=== PATIENT | female | born 1960 | race Caucasian/White ===

== ENCOUNTER 2016-09-01 10:15 | Day surgery (SDC) | payer OTHER, MEDICARE ==
--- NOTE | ~2016-09-01 | EGD ---
EGD REPORT [facility] [address] [place] [address] NAME: MARILYNN OLMSTEAD : 60 STATUS : REG [facility]#: [id number] AGE: 56 ADM/REG DATE : 09/01/16 MR#: [id number] REPORT SERV DATE: 09/01/16 DICTATED BY: MICHAEL SHANKAR DATE: 09/01/16 REPORT STATUS : Draft TRANSCRIBED BY: [facility] DATE: 09/01/16 Endoscopy Center Patient Name: Marilnyn Olmstead Date of : 1960 Attending MD: MICHAEL SHANKAR MD Procedure Date No Time: 09/01/2016 Procedure: Colonoscopy Indications: Hematochezia, Last colonoscopy within the past 6 months Referring MD: BLANCA PALAFOX MD, ELIEL JOHNSTON III, MD Medicines: See the Anesthesia note for documentation of the administered medications Complications: No immediate complications. Procedure: Pre-Anesthesia Assessment: - ASA Grade Assessment: III - A patient with severe systemic disease. After I obtained informed consent, the scope was passed under direct vision. Throughout the procedure, the patient's blood pressure, pulse, and oxygen saturations were monitored continuously. The PCF [id number] was introduced through the sigmoid colostomy with the intention of advancing to the cecum. The scope was advanced to the surgical stoma before the procedure was aborted. Medications were given. The GIF H190 [id number] was introduced through the and advanced to. The GIF [id number] was introduced through the and advanced to. The colonoscopy was performed without difficulty. The patient tolerated the procedure well. The quality of the bowel preparation was adequate. Findings: Feel stricture within 2 cm, Inflammed mucosa. Ostomy stricture at 2 cm from skin. Ostomy sunken into skin. Impression: - Feel stricture within 2 cm Recommendation: - Patient has a contact number available for emergencies. The signs and symptoms of potential delayed complications were discussed with the patient. Return to normal activities tomorrow. Written discharge instructions were provided to the patient. - Continue present medications. - I have talked with Dr Johnston. His office to call you regarding colostomy surgery. - Repeat colon 02/2021 EGD REPORT [address] [place]. [address] NAME: MARILYNN OLMSTEAD : 60 STATUS : REG [facility] PAT#: [id number] AGE: 56 ADM/REG DATE : 09/01/16 MR#: [id number] REPORT SERV DATE: 09/01/16 DICTATED BY: MICHAEL SHANKAR DATE: 09/01/16 REPORT STATUS : Draft TRANSCRIBED BY: [employer] DATE: 09/01/16 Procedure Code(s): --- Professional --- 63783, 52, Colonoscopy through stoma; diagnostic, with or without collection of specimen(s) by brushing or washing (separate procedure) Diagnosis Code(s): --- Professional --- K92.1, Melena CPT copyright 2013 [employer]. All rights reserved. The codes documented in this report are preliminary and upon remote inpatient coder review may be revised to meet current compliance requirements. Michael Shankar MD MICHAEL SHANKAR MD 09/01/2016 12:12 PM This report has been signed electronically. Number of Addenda: 0 Note Initiated On: 09/01/2016 11:42 AM Scope Withdrawal Time 0 hours 0 minutes 0 seconds [address] [place] [address]
[~2016-09-01 10:15] MED LIST: *UNABLE1; ACET500CAP PO; ACID REDUCER PO; ACTEMRA80 MG/4 ML IV; ALIGN4 MG PO; APRES25 PO; APRES50; APRES50 PO; ARAVA20 PO; AUG875 PO; CIP2 PO; CIP5 PO; COREG3 PO; COREG6 PO; COZ50 PO; FLAG500TAB PO; FOLIC PO; FORTAMET500 MG PO; HYDROCODONE; LANTUS SC; LANTUSCART SC; LEVAQUIN5T PO; LEVAQUIN750 MG PO; MAGOX4; MIRALAXPKT PO; MTX2.5 PO; NOVOLOG SC; P1 PO; PCET PO; PREDNISONE2.5 MG PO; PREV30 PO; PROAIR HFA INH; PROVHFA INH; REMICADE IV; RENVELA800 MG; RENVELA800 MG PO; SENSIPAR30 M1; SENSIPAR30 M1 PO; STERAPRED DS10 MG; SUCR PO; SYMBICORT 160/41 INH INH; SYSTANE OPH; TOPXL25 PO; TOPXL50 PO; VANCO1P; VIB100 PO; VICODINTAB PO; VITAMIN D31000 UNIT PO; ZANTAC 150 PO; ZANTAC150 MG PO; ZOCOR20 PO; ZOFRAN4 PO
[2016-09-01 11:21] LABS: CHLORIDE, SERUM 103 MMOL/L (96-112); CO2 (CARBON DIOXIDE) 26 MMOL/L (24-34); SODIUM, SERUM 139 MMOL/L (135-148)
[2016-09-01 11:23] LABS: BUN (BLOOD UREA NITROGEN) 37 MG/DL (6-23); CALCIUM, SERUM 10.4 MG/DL (8.5-10.4); CREATININE 5.22 MG/DL (0.55-1.02); GFR AFRICAN AMERICAN 10 ML/MIN (>=60); GFR NON AFRICAN AMERICAN 9 ML/MIN (>=60); GLUCOSE, SERUM 115 MG/DL (60-99); POTASSIUM, SERUM 5.2 MMOL/L (3.5-5.3)
[2016-09-19] MEDS ORDERED: SUCR PO (10:19)
[2016-09-19] MEDS ORDERED: SODBICAR10 PO (10:20)
== END 2016-09-01 23:59 | disposition home or self-care (01) ==
LOC: DMU 10:15
PROVIDERS: Anesthesiology; Internal Medicine Gastroenterology
PROC: 0DJD8ZZ Inspection of Lower Intestinal Tract, Via Natural or Artificial Opening Endoscopic (ICD-10-PCS; principal; 2016-09-01 12:00)
DX: K92.1 Melena (principal); J44.9 Chronic obstructive pulmonary disease, unspecified; E78.5 Hyperlipidemia, unspecified; E11.40 Type 2 diabetes mellitus with diabetic neuropathy, unspecified; I10 Essential (primary) hypertension; G47.30 Sleep apnea, unspecified; J45.909 Unspecified asthma, uncomplicated; M06.9 Rheumatoid arthritis, unspecified; K21.9 Gastro-esophageal reflux disease without esophagitis; K44.9 Diaphragmatic hernia without obstruction or gangrene; Z88.8 Allergy status to other drugs, medicaments and biological substances; Z79.899 Other long term (current) drug therapy; Z79.4 Long term (current) use of insulin; Z90.89 Acquired absence of other organs; Z99.89 Dependence on other enabling machines and devices; Z98.890 Other specified postprocedural states; Z96.643 Presence of artificial hip joint, bilateral
CPT/HCPCS: 80048; A9270-GY

== ENCOUNTER 2016-09-22 05:52 | Inpatient (IN) | payer OTHER, MEDICARE ==
--- NOTE | ~2016-09-22 | OP ---
Record Of Operation [facility] [address] [place]. [address] NAME: ANIBAL BA : 60 STATUS : ADM IN [facility]#: [id number] AGE: 56 ADM/REG DATE : 09/22/16 MR#: [id number] REPORT SERV DATE: 09/23/16 DICTATED BY: ELIEL JOHNSTON III DATE: 09/23/16 REPORT STATUS : Draft TRANSCRIBED BY: [employer] DATE: 09/23/16 DATE OF PROCEDURE: 09/22/2016 PREOPERATIVE DIAGNOSIS: History of previous severe sigmoid diverticulitis with previous history of sigmoid colectomy and colostomy with anastomotic leak requiring reoperation with replacement of colostomy, with need for colostomy closure, associated with severe steroid- dependent arthritis, chronic kidney disease, dialysis dependent, diabetes mellitus, and obesity. POSTOPERATIVE DIAGNOSIS: History of previous severe sigmoid diverticulitis with previous history of sigmoid colectomy and colostomy with anastomotic leak requiring reoperation with replacement of colostomy, with need for colostomy closure, associated with severe steroid- dependent arthritis, chronic kidney disease, dialysis dependent, diabetes mellitus, and obesity. PROCEDURE: Laparotomy with resection and closure of colostomy stoma with primary colorectal anastomosis and sigmoidoscopy. SURGEON: Eliel Johnston M.D. ANESTHESIA: General with intubation. COMPLICATIONS: None. ESTIMATED BLOOD LOSS: 50 mL. SPECIMENS: Distal left colon consisting of abdominal wall stoma. DRAINS: Jose-Barnes in abdominal cavity and Converse in subcutaneous tissue. LAP AND SPONGE COUNT: Correct x3. BRIEF HISTORY: This 56-year-old female who is status post sigmoid colectomy which was performed several months ago for severe chronic diverticular disease. The patient developed a postoperative anastomotic leak, requiring reoperation with colostomy and Alverto's pouch. It was now felt that closure of this colostomy is indicated. This procedure, the risks, benefits, and alternatives, including not limited to the risk for bleeding, infection, enterotomy, injury to any abdominal structure, postop small bowel obstruction, ileus, incisional hernia, dehiscence, anastomotic leak, requiring reoperation with replacement of the colostomy, ureteral injury and unforeseen complications including deep venous thrombosis, pulmonary embolus, myocardial infarction, stroke, pneumonia, and , were fully and completely explained to the patient and her family at length on multiple occasions prior to surgery. The fact that this was a major operation with risk for major morbidity and mortality has been explained. The expected length of recovery was explained. The fact that she is at increased risk for complications and anastomotic leak because of her previous surgery, because of her previous anastomotic leak, because of her steroid dependency, renal Record Of Operation [facility] [address] [place]. [address] NAME: ANIBAL BA : 60 STATUS : ADM IN PAT#: [id number] AGE: 56 ADM/REG DATE : 09/22/16 MR#: [id number] REPORT SERV DATE: 09/23/16 DICTATED BY: ELIEL JOHNSTON III DATE: 09/23/16 REPORT STATUS : Draft TRANSCRIBED BY: [employer] DATE: 09/23/16 failure, and obesity. The patient's questions were answered. She fully understood the risks and agreed to surgery as planned. DESCRIPTION OF PROCEDURE: After being properly identified and after discussing risks of surgery with the patient and family again in the preoperative area and after an appropriate bowel preparation at home, the patient was taken to the operating room and placed in the supine position on the operating room table. General anesthesia was administered. She was intubated without difficulty. A Nicholson catheter was inserted. Her legs were placed in stirrups. They were carefully and appropriately padded and protected. The abdomen and perineum were prepped and draped sterilely in the usual fashion. After an appropriate "timeout" per JCAHO standards, a midline incision was made over the previous incision from the navel continuing to the pubis. The incision was continued through the subcutaneous tissue. Hemostasis was controlled with electrocautery. The incision was continued carefully through the fascia. There were dense adhesions between several loops of small bowel and the omentum and the underside of the abdominal wall. These adhesions were carefully divided. We dissected down into the pelvis. The omentum was densely adherent into the pelvis. Using sharp dissection, the adhesions were divided. The omentum was mobilized. Using sharp dissection, we identified the rectal stump. It was carefully mobilized and freed. At this time, a circular incision was made around the colostomy stoma in the left lower quadrant. The stoma was resected from the abdominal wall and reduced back into the abdominal cavity. The distal end of the left colon which was within the abdominal wall, the stoma, was divided with the JEREMY stapler, removing about 2-3 cm of the distal left colon. We then performed end-to-end anastomosis between the divided left colon and the proximal rectum. This was performed using the EEA stapler. 2-0 Prolene pursestring was placed around the divided end of the left colon. The staple end of the colon was excised. Sizers were placed into the lumen of the colon. It was determined that a #29 EEA stapler was the appropriate size. The anvil was then placed into the lumen of the left colon as the pursestring was secured. At this time, the EEA stapler was carefully placed into the rectum after carefully dilating the rectum with dilators. The EEA stapler was passed up to the rectal stump. The pin was opened and passed through the rectal stump. The pin was connected to the anvil in the left colon. The stapling device was then carefully closed and fired. The stapling device was removed. We obtained two good complete "doughnuts" indicating a good anastomosis. At this time, the sigmoidoscope was passed into the rectum. Air was passed through the sigmoidoscope and through the anastomosis with saline in the pelvis. The air was noted to pass easily through the anastomosis with no evidence for leakage or extravasation indicating watertight anastomosis. The anastomosis was patent to palpation, it was not twisted or kinked in any way. It was not under any tension. The anterior aspect of the anastomosis was reinforced with interrupted 3-0 silk sutures. Record Of Operation [facility] [address] [facility] [place]. [address] NAME: ANIBAL BA : 60 STATUS : ADM IN [facility]#: [id number] AGE: 56 ADM/REG DATE : 09/22/16 MR#: [id number] REPORT SERV DATE: 09/23/16 DICTATED BY: ELIEL JOHNSTON III DATE: 09/23/16 REPORT STATUS : Draft TRANSCRIBED BY: MODL DATE: 09/23/16 Again, the anastomosis was patent to palpation. The pelvis was irrigated copiously with saline. Hemostasis was assured. A Jose-Barnes drain was brought through a separate stab wound and placed in the pelvis. The fascia of the stomal defect was closed with a running looped #1 Prolene suture. The hemostasis was assured. The fascia of the midline incision was closed with a running looped #1 PDS suture. The skin was closed with skin mat over a Brittanie drain which was brought out through the inferior aspect of the incision. A Brittanie drain was also placed in the subcutaneous tissue where the stoma had been located. Dressings were applied. Anesthesia was reversed, and the patient was taken to the recovery room in stable condition. She tolerated the procedure well. Her family was informed results of surgery. The patient will remain in the hospital for postoperative care. This procedure was extremely difficult secondary to marked adhesions from the patient's previous peritonitis which extended the length of the procedure by 75% and for this reason, modifier 22 was added to the procedure code. RHJ/MODL Eliel Johnston III, M.D. / [id number] CC: Wendie Marquez III, M.D.
--- NOTE | ~2016-09-22 | DS ---
Discharge Summary [facility] [address] [facility] [place]. [address] NAME: ANIBAL AB : 60 STATUS : DIS IN PAT#: [id number] AGE: 56 ADM/REG DATE : 09/22/16 MR#: [id number] REPORT SERV DATE: 10/06/16 DICTATED BY: ELIEL JOHNSTON III DATE: 10/05/16 REPORT STATUS : Draft TRANSCRIBED BY: [employer] DATE: 10/05/16 Data Collection from hospitalization DISCHARGE DIAGNOSES: 1. History of previous severe sigmoid diverticulitis with previous history of sigmoid colectomy and colostomy with anastomotic leak, requiring reoperation with replacement of colostomy with need for colostomy closure. 2. Severe steroid-dependent arthritis. 3. Chronic kidney disease - dialysis dependent. 4. Diabetes mellitus. 5. Obesity. 6. Hypertension. 7. Hyperlipidemia. 8. Gastroesophageal reflux disease. CONSULTATIONS: Cam Dawson M.D. PROCEDURES PERFORMED: Laparotomy with resection and closure of colostomy stoma with primary colorectal anastomosis and sigmoidoscopy on 09/22/2016. PATHOLOGY: Colostomy stoma takedown - intact cutaneous - colonic anastomosis with mucosal/epithelial erosion and inflamed granulation tissue. Extensive dermal and submucosal fibrosis associated with florid chronic inflammation including suture granulomas and fat necrosis, no malignant neoplasm identified. Colon anastomotic rings resection portion - portions of benign colonic mucosa with areas of submucosal hemorrhage, no malignant neoplasm identified. MEDICATIONS: ProAir two puffs via inhaler as needed, folic acid 1 mg at bedtime, Lantus 20 units subcutaneously at bedtime, Arava 20 mg at bedtime, Toprol-XL 25 mg every day at bedtime, Zofran 4 mg daily as needed, Percocet 7.5/325 one tablet every six to eight hours as needed, Deltasone 1 mg every day at bedtime, Zantac 150 mg at bedtime and 150 mg daily as needed, sodium bicarb 650 mg twice a day, and Carafate 1 g before meals and at bedtime as needed. CONDITION AT DISCHARGE: Stable. DISPOSITION: The patient was discharged home on an 1800-calorie, low-cholesterol, renal- diabetic diet with no concentrated carbohydrates and activities as instructed. She would follow up with me on 10/11/2016. HOSPITAL COURSE: This is a 56-year-old female who has had multiple medical problems including end-stage renal disease and is dialysis dependent. She has diabetes, hypertension, and severe rheumatoid arthritis. She has a history of severe recurrent sigmoid diverticulitis. She had multiple episodes of diverticulitis last year. She underwent an elective sigmoid colectomy earlier this year. Her postoperative course had been complicated by microscopic anastomotic leak, requiring reoperation with colostomy. She has now developed evidence for stenosis of her stoma with recurrent bleeding. She presented at this time to undergo resection and closure of her colostomy stoma. She was admitted to Discharge Summary [address] [facility] [place]. [address] NAME: ANIBAL BA : 60 STATUS : DIS IN PAT#: [id number] AGE: 56 ADM/REG DATE : 09/22/16 MR#: [id number] REPORT SERV DATE: 10/06/16 DICTATED BY: ELIEL JOHNSTON III DATE: 10/05/16 REPORT STATUS : Draft TRANSCRIBED BY: COLUMBA DATE: 10/05/16 the hospital for further evaluation and treatment. Upon admission, she was taken to the operating room where she underwent the above-mentioned procedure. She tolerated this well, and there were no complications. She was in consultation by Dr. Cam Dawson. The patient undergoes outpatient hemodialysis on Mondays, Wednesdays, and Fridays for end-stage renal disease. Potassium was going to be discontinued from her IV fluids/KVO, dialysis would be performed the following day, supportive care would be provided. On postop day #1, she had no new complaints. The patient requested that she be able to keep the Nicholson catheter for now as she had frequent urination, dialysis therapy was performed. On 09/24/2016, she had no new complaints except for her chronic back pain. Clear liquids were started. She continued to progress and began to feel better. She tolerate clear liquids. She was passing gas per rectum. Her diet was advanced. Discharge planning was performed. She was evaluated by Physical Therapy. On 09/26/2016, she felt well. She said she was hungry and wanted more food. She was passing gas. We advanced her diet. The [employer] REPA[employer]ER was discontinued. Discharge instructions were given. She had good urine output. Due to her improved and stable condition, she was discharged home with the above-stated instructions. Information collected by: Padmini Cobb I submit the above information as my discharge summary. TG/MODL Eliel Johnston III, M.D. / [id number] CC: Wendie Marquez III, M.D. Nathan Chamberlain, M.D.
--- NOTE | ~2016-09-22 | PREOPHP ---
PreOp History and Physical [place] [id number] [facility] [place]. [address] NAME: ANIBAL BA : 60 STATUS : ADM IN [facility]#: [id number] AGE: 56 ADM/REG DATE : 09/22/16 MR#: [id number] REPORT SERV DATE: 09/23/16 DICTATED BY: ELIEL JOHNSTON III DATE: 09/07/16 REPORT STATUS : Draft TRANSCRIBED BY: COLUMBA DATE: 09/07/16 HISTORY OF PRESENT ILLNESS: This 56-year-old female comes to the operating room for laparotomy with resection and closure of a previous colostomy. The patient has history of severe recurrent sigmoid diverticulitis. She had multiple episodes of diverticulitis last year. She underwent an elective sigmoid colectomy earlier this year. Her postoperative course was complicated by microscopic anastomotic leak requiring reoperation with colostomy. She has now developed evidence for stenosis of her stoma with recurrent bleeding. She comes now for resection and closure of her colostomy stoma. The patient has multiple medical problems including end-stage renal disease, which is dialysis dependent, diabetes, hypertension, and severe rheumatoid arthritis. This has been explained to her with all of these comorbid risk factors. We will increase her risk for complications including another anastomotic leak has been explained. It has been explained to her the temporary diverting ileostomy may be required at the time of surgery depending on the findings at surgery and depending on her anastomosis. PAST MEDICAL HISTORY: 1. Recurrent episodes of sigmoid diverticulitis. The patient had severe episode of diverticulitis in September 2015. This required hospitalization. She had at least three episodes prior to that time. 2. History of chronic kidney disease, dependent on hemodialysis. 3. Hypertension. 4. Insulin-dependent diabetes mellitus. 5. Obesity. 6. Rheumatoid arthritis, steroid dependent. 7. Hyperlipidemia. 8. Gastroesophageal reflux disease. 9. History of deep venous thrombosis of the lower extremities. MEDICATIONS: Arava; carvedilol; Zocor; Zofran; prednisone; folic acid; Carafate; Zantac; ProAir; insulin; hydralazine; Cozaar; Renvela; and Sensipar. SOCIAL HISTORY: The patient is . She lives locally. She is not employed. She has no history of tobacco or alcohol use. ALLERGIES: VANTIN AND LODINE. FAMILY HISTORY: Positive for multiple myeloma. REVIEW OF SYSTEMS: The patient complained of some recurrent episodes of bright red blood per her stoma which has been evaluated with colonoscopy and found to be related to stenosis and ulceration of the stoma itself. The patient's 14-point review of systems is otherwise unremarkable. PreOp History and Physical [address] [place]. [address] NAME: ANIBAL BA : 60 STATUS : ADM IN [facility]#: [id number] AGE: 56 ADM/REG DATE : 09/22/16 MR#: [id number] REPORT SERV DATE: 09/23/16 DICTATED BY: ELIEL JOHNSTON III DATE: 09/07/16 REPORT STATUS : Draft TRANSCRIBED BY: COLUMBA DATE: 09/07/16 PAST SURGICAL HISTORY: Includes laparoscopic peritoneal dialysis catheter placement, sigmoid colectomy, reoperation with a diverting colostomy, hip replacement x2, cholecystectomy, and appendectomy. The patient's sigmoid colectomy was performed on 05/26/2016. PHYSICAL EXAMINATION: GENERAL: This is a pleasant female, in no acute distress. She is obese. She is alert and oriented x3. VITAL SIGNS: Blood pressure 145/87, pulse 93, and temperature 98.5. HEENT: Unremarkable. NEURO: Cranial nerves 2 through 12 are normal. LUNGS: Clear. CARDIAC: Normal. ABDOMEN: Soft, nontender. The patient has a colostomy in the left lower quadrant. The stoma is retracted and the stomal opening is very narrowed and stenosed and ulcerated. EXTREMITIES: Normal. ASSESSMENT: 1. A 56-year-old female with previous history of sigmoid colectomy for diverticular disease, with colostomy, with stenosis of bleeding from the colostomy stoma, with need for resection and closure of the colostomy. 2. Obesity. 3. End-stage renal disease, dialysis dependent. 4. Rheumatoid arthritis, steroid dependent. 5. Hypertension. 6. Insulin-dependent denies mellitus. 7. Obesity. 8. Hyperlipidemia. 9. History of deep venous thrombosis. 10.Gastroesophageal reflux disease. PLAN: The patient comes to the operating room now for resection and closure of her colostomy. The possible need for temporary diverting ileostomy has been explained. The procedure risks, benefits, and alternatives, including not limited to the risk for bleeding, infection, enterotomy, injury to the abdominal structure, postop small bowel obstruction, ileus, incisional hernia, dehiscence, anastomotic leak, requiring reoperation with replacement of colostomy, ureteral injury, and unforeseen complications including deep venous thrombosis, pulmonary embolus, myocardial infarction, stroke, pneumonia, and , have been fully and completely explained to the patient and family at length on several occasions prior to surgery. The fact that this is a major operation with risk for major morbidity and mortality has been explained. The expected length of recovery has been explained. The fact that she is at increased risk for complications due to her obesity and multiple medical problems including diabetes and steroid dependency and renal failure has been explained. The patient's questions have been answered. She clearly understands the risks and agrees to surgery as planned. PreOp History and Physical [address] [place]. [address] NAME: ANIBAL BA : 60 STATUS : ADM IN [facility]#: [id number] AGE: 56 ADM/REG DATE : 09/22/16 MR#: [id number] REPORT SERV DATE: 09/23/16 DICTATED BY: ELIEL JOHNSTON III DATE: 09/07/16 REPORT STATUS : Draft TRANSCRIBED BY: COLUMBA DATE: 09/07/16 GENTRY/COLUMBA Eliel Johnston III, M.D. / [id number]
[~2016-09-22 05:52] MED LIST changes: +SODBICAR10 PO
[2016-09-22 06:44] LABS: BASOPHILS 0.7 %; BASOPHILS ABSOLUTE 0.04 10/3/uL (0.0-0.16); EOSINOPHILS ABSOLUTE 0.22 10/3/uL (0.0-0.53); IMMATURE GRANULOCYTES 0.2 %; IMMATURE GRANULOCYTES ABSOLUTE 0.01 10/3/uL (0.0-0.11); LYMPHOCYTES 31.8 %; LYMPHOCYTES ABSOLUTE 1.75 10/3/uL (0.67-4.30); MEAN CORPUS HGB CONC 32.2 g/dL (32.0-36.0); MEAN CORPUSCULAR HEMOGLOB 27.2 pg (26.0-34.0); MEAN PLATELET VOLUME 8.9 fL (9.2-13.0); MONOCYTES 10.2 %; MONOCYTES ABSOLUTE 0.56 10/3/uL (0.21-1.20); NEUTROPHILS 53.1 %; NEUTROPHILS ABSOLUTE 2.92 10/3/uL (2.02-8.40); RBC DISTRIBUTION WIDTH 17.4 % (12.0-16.0); WHITE BLOOD CELLS 5.5 10/3/uL (4.5-10.5)
[2016-09-22 06:46] LABS: HEMATOCRIT 40.7 % (36.0-48.0); HEMOGLOBIN 13.1 g/dL (12.0-16.0); MANUAL DIFF NO %; MEAN CORPUSCULAR VOLUME 84.4 fL (80-100); PLATELET COUNT 191 10/3/uL (150-400); RED CELL COUNT 4.82 10/6/uL (4.0-5.6)
[2016-09-22 06:49] LABS: INTERNATIONAL NORMAL RATI 1.1 UNITS (-); PARTIAL THROMBO TIME 25.3 SEC (22.5-37.2); PROTIME (NOT ORD) 13.6 SEC (12.0-14.5)
[2016-09-22 07:00] LABS: A/G RATIO 0.7 (0.7-1.9); ALBUMIN 3.4 G/DL (3.5-5.0); ALKALINE PHOSPHATASE 102 U/L (45-117); BUN (BLOOD UREA NITROGEN) 25 MG/DL (6-23); CHLORIDE, SERUM 101 MMOL/L (96-112); CO2 (CARBON DIOXIDE) 25 MMOL/L (24-34); CREATININE 5.48 MG/DL (0.55-1.02); GFR AFRICAN AMERICAN 9 ML/MIN (>=60); GFR NON AFRICAN AMERICAN 8 ML/MIN (>=60); GLOBULIN 4.6 G/DL (2.5-4.1); GLUCOSE, SERUM 108 MG/DL (60-99); POTASSIUM, SERUM 4.5 MMOL/L (3.5-5.3); SGOT(AST) 23 U/L (5-40); SGPT(ALT) 31 U/L (5-65); SODIUM, SERUM 139 MMOL/L (135-148); TOTAL BILIRUBIN 0.5 MG/DL (0-1.2)
[2016-09-22 21:15] LABS: BUN (BLOOD UREA NITROGEN) 32 MG/DL (6-23); CALCIUM, SERUM 9.3 MG/DL (8.5-10.4); CHLORIDE, SERUM 101 MMOL/L (96-112); CO2 (CARBON DIOXIDE) 24 MMOL/L (24-34); CREATININE 6.13 MG/DL (0.55-1.02); GFR AFRICAN AMERICAN 8 ML/MIN (>=60); GFR NON AFRICAN AMERICAN 7 ML/MIN (>=60); GLUCOSE, SERUM 174 MG/DL (60-99); POTASSIUM, SERUM 5.3 MMOL/L (3.5-5.3); SODIUM, SERUM 137 MMOL/L (135-148)
[2016-09-23 07:09] LABS: BASOPHILS 0.6 %; BASOPHILS ABSOLUTE 0.04 10/3/uL (0.0-0.16); EOSINOPHILS ABSOLUTE 0.07 10/3/uL (0.0-0.53); HEMOGLOBIN 10.7 g/dL (12.0-16.0); IMMATURE GRANULOCYTES 0.1 %; IMMATURE GRANULOCYTES ABSOLUTE 0.01 10/3/uL (0.0-0.11); LYMPHOCYTES 15.1 %; LYMPHOCYTES ABSOLUTE 1.08 10/3/uL (0.67-4.30); MEAN CORPUS HGB CONC 31.7 g/dL (32.0-36.0); MEAN CORPUSCULAR VOLUME 85.4 fL (80-100); MEAN PLATELET VOLUME 9.1 fL (9.2-13.0); MONOCYTES 10.5 %; MONOCYTES ABSOLUTE 0.75 10/3/uL (0.21-1.20); NEUTROPHILS 72.7 %; NEUTROPHILS ABSOLUTE 5.21 10/3/uL (2.02-8.40); PLATELET COUNT 189 10/3/uL (150-400); RBC DISTRIBUTION WIDTH 17.8 % (12.0-16.0); RED CELL COUNT 3.96 10/6/uL (4.0-5.6); WHITE BLOOD CELLS 7.2 10/3/uL (4.5-10.5)
[2016-09-23 07:11] LABS: HEMATOCRIT 33.8 % (36.0-48.0); MANUAL DIFF NO %
[2016-09-23 07:23] LABS: ALBUMIN 2.7 G/DL (3.5-5.0); BUN (BLOOD UREA NITROGEN) 38 MG/DL (6-23); CHLORIDE, SERUM 99 MMOL/L (96-112); CO2 (CARBON DIOXIDE) 22 MMOL/L (24-34); CREATININE 6.69 MG/DL (0.55-1.02); GFR AFRICAN AMERICAN 7 ML/MIN (>=60); GFR NON AFRICAN AMERICAN 6 ML/MIN (>=60); GLUCOSE, SERUM 98 MG/DL (60-99); PHOSPHORUS, SERUM 8.5 MG/DL (2.5-4.5); POTASSIUM, SERUM 4.8 MMOL/L (3.5-5.3); SODIUM, SERUM 134 MMOL/L (135-148)
[2016-09-24 06:13] LABS: BASOPHILS 0.3 %; BASOPHILS ABSOLUTE 0.02 10/3/uL (0.0-0.16); EOSINOPHILS 3.8 %; EOSINOPHILS ABSOLUTE 0.22 10/3/uL (0.0-0.53); HEMATOCRIT 33.7 % (36.0-48.0); HEMOGLOBIN 10.5 g/dL (12.0-16.0); IMMATURE GRANULOCYTES 0.2 %; IMMATURE GRANULOCYTES ABSOLUTE 0.01 10/3/uL (0.0-0.11); LYMPHOCYTES 21.5 %; LYMPHOCYTES ABSOLUTE 1.23 10/3/uL (0.67-4.30); MEAN CORPUS HGB CONC 31.2 g/dL (32.0-36.0); MEAN CORPUSCULAR HEMOGLOB 26.8 pg (26.0-34.0); MEAN PLATELET VOLUME 9.1 fL (9.2-13.0); MONOCYTES 12.6 %; MONOCYTES ABSOLUTE 0.72 10/3/uL (0.21-1.20); NEUTROPHILS 61.6 %; NEUTROPHILS ABSOLUTE 3.53 10/3/uL (2.02-8.40); PLATELET COUNT 166 10/3/uL (150-400); RBC DISTRIBUTION WIDTH 18.1 % (12.0-16.0); RED CELL COUNT 3.92 10/6/uL (4.0-5.6); WHITE BLOOD CELLS 5.7 10/3/uL (4.5-10.5)
[2016-09-24 06:14] LABS: MANUAL DIFF NO %
[2016-09-24 06:21] LABS: ALBUMIN 2.5 G/DL (3.5-5.0); BUN (BLOOD UREA NITROGEN) 18 MG/DL (6-23); CALCIUM, SERUM 8.7 MG/DL (8.5-10.4); CHLORIDE, SERUM 103 MMOL/L (96-112); CO2 (CARBON DIOXIDE) 26 MMOL/L (24-34); GFR AFRICAN AMERICAN 12 ML/MIN (>=60); GFR NON AFRICAN AMERICAN 10 ML/MIN (>=60); GLUCOSE, SERUM 93 MG/DL (60-99); PHOSPHORUS, SERUM 3.4 MG/DL (2.5-4.5); POTASSIUM, SERUM 4.4 MMOL/L (3.5-5.3); SODIUM, SERUM 137 MMOL/L (135-148)
[2016-09-25 04:39] LABS: BASOPHILS 0.2 %; BASOPHILS ABSOLUTE 0.01 10/3/uL (0.0-0.16); EOSINOPHILS 3.7 %; EOSINOPHILS ABSOLUTE 0.16 10/3/uL (0.0-0.53); HEMATOCRIT 34.2 % (36.0-48.0); HEMOGLOBIN 10.6 g/dL (12.0-16.0); IMMATURE GRANULOCYTES 0.5 %; IMMATURE GRANULOCYTES ABSOLUTE 0.02 10/3/uL (0.0-0.11); LYMPHOCYTES 26.9 %; LYMPHOCYTES ABSOLUTE 1.16 10/3/uL (0.67-4.30); MANUAL DIFF NO %; MEAN CORPUSCULAR HEMOGLOB 26.6 pg (26.0-34.0); MEAN CORPUSCULAR VOLUME 85.9 fL (80-100); MEAN PLATELET VOLUME 8.8 fL (9.2-13.0); MONOCYTES 10.2 %; MONOCYTES ABSOLUTE 0.44 10/3/uL (0.21-1.20); NEUTROPHILS 58.5 %; NEUTROPHILS ABSOLUTE 2.53 10/3/uL (2.02-8.40); PLATELET COUNT 155 10/3/uL (150-400); RED CELL COUNT 3.98 10/6/uL (4.0-5.6); WHITE BLOOD CELLS 4.3 10/3/uL (4.5-10.5)
[2016-09-25 04:56] LABS: CHLORIDE, SERUM 104 MMOL/L (96-112); CO2 (CARBON DIOXIDE) 27 MMOL/L (24-34); GFR AFRICAN AMERICAN 9 ML/MIN (>=60); GFR NON AFRICAN AMERICAN 7 ML/MIN (>=60); GLUCOSE, SERUM 96 MG/DL (60-99); POTASSIUM, SERUM 4.6 MMOL/L (3.5-5.3); SODIUM, SERUM 138 MMOL/L (135-148)
[2016-09-25 04:57] LABS: BUN (BLOOD UREA NITROGEN) 26 MG/DL (6-23); CREATININE 5.82 MG/DL (0.55-1.02)
[2016-09-26 06:54] LABS: BASOPHILS 0.5 %; BASOPHILS ABSOLUTE 0.02 10/3/uL (0.0-0.16); EOSINOPHILS 4.6 %; EOSINOPHILS ABSOLUTE 0.18 10/3/uL (0.0-0.53); HEMATOCRIT 34.9 % (36.0-48.0); HEMOGLOBIN 10.9 g/dL (12.0-16.0); IMMATURE GRANULOCYTES 0.5 %; IMMATURE GRANULOCYTES ABSOLUTE 0.02 10/3/uL (0.0-0.11); LYMPHOCYTES 26.6 %; LYMPHOCYTES ABSOLUTE 1.04 10/3/uL (0.67-4.30); MANUAL DIFF NO %; MEAN CORPUS HGB CONC 31.2 g/dL (32.0-36.0); MEAN CORPUSCULAR VOLUME 86.4 fL (80-100); MEAN PLATELET VOLUME 8.9 fL (9.2-13.0); MONOCYTES ABSOLUTE 0.43 10/3/uL (0.21-1.20); NEUTROPHILS 56.8 %; NEUTROPHILS ABSOLUTE 2.22 10/3/uL (2.02-8.40); PLATELET COUNT 187 10/3/uL (150-400); RBC DISTRIBUTION WIDTH 17.5 % (12.0-16.0); RED CELL COUNT 4.04 10/6/uL (4.0-5.6); WHITE BLOOD CELLS 3.9 10/3/uL (4.5-10.5)
[2016-09-26 07:06] LABS: BUN (BLOOD UREA NITROGEN) 29 MG/DL (6-23); CALCIUM, SERUM 9.2 MG/DL (8.5-10.4); CHLORIDE, SERUM 105 MMOL/L (96-112); CO2 (CARBON DIOXIDE) 26 MMOL/L (24-34); CREATININE 6.55 MG/DL (0.55-1.02); GFR AFRICAN AMERICAN 8 ML/MIN (>=60); GFR NON AFRICAN AMERICAN 6 ML/MIN (>=60); GLUCOSE, SERUM 95 MG/DL (60-99); POTASSIUM, SERUM 4.5 MMOL/L (3.5-5.3); SODIUM, SERUM 137 MMOL/L (135-148)
[2016-09-26] MEDS ORDERED: PERCOCET 7.5/321 TAB PO (15:33)
== END 2016-09-26 16:24 | disposition home or self-care (01) | DRG 329 ==
LOC: SDC/OF 05:52 → PACU 10:15 → 5SO 12:31
PROVIDERS: Internal Medicine Nephrology; Surgery
PROC: 0DBE0ZZ Excision of Large Intestine, Open Approach (ICD-10-PCS; principal; 2016-09-22 07:45)
PROC: 0DJD8ZZ Inspection of Lower Intestinal Tract, Via Natural or Artificial Opening Endoscopic (ICD-10-PCS; 2016-09-22 07:45)
PROC: 5A1D60Z (ICD-10-PCS; 2016-09-23)
DX: K94.01 Colostomy hemorrhage (principal); N18.6 End stage renal disease; E11.22 Type 2 diabetes mellitus with diabetic chronic kidney disease; I12.0 Hypertensive chronic kidney disease with stage 5 chronic kidney disease or end stage renal disease; K94.09 Other complications of colostomy; E66.9 Obesity, unspecified; Z99.2 Dependence on renal dialysis; M06.9 Rheumatoid arthritis, unspecified; Z79.52 Long term (current) use of systemic steroids; Z79.899 Other long term (current) drug therapy; Z79.4 Long term (current) use of insulin; Z86.718 Personal history of other venous thrombosis and embolism; K21.9 Gastro-esophageal reflux disease without esophagitis; K58.9 Irritable bowel syndrome, unspecified; Z86.73 Personal history of transient ischemic attack (TIA), and cerebral infarction without residual deficits; G47.33 Obstructive sleep apnea (adult) (pediatric)
CPT/HCPCS: 36415; 72040; 72072; 72100; 73502-RT; 73630-RT; 80048; 80053; 80069; 82962; 83735; 85025; 85610; 85730; 86850; 86900; 86901; 88304; 93005; A9270-GY; C9113; G0257; J0690; J1170; J2250; J2270; J2370; J2405; J2710; J2795; J2930; J3010; J3475

== ENCOUNTER 2016-10-07 15:10 | Observation (INO) | payer OTHER, MEDICARE ==
--- NOTE | ~2016-10-07 | HP ---
History And Physical [address] [address] NAME: ANIBAL BA : 60 STATUS : DIS Jodie PAT#: [id number] AGE: 56 ADM/REG DATE : 10/07/16 MR#: [id number] REPORT SERV DATE: 10/08/16 DICTATED BY: ELIEL JOHNSTON III DATE: 10/08/16 REPORT STATUS : Draft TRANSCRIBED BY: MODVinita DATE: 10/08/16 DATE OF ADMISSION: 10/07/2016 HISTORY OF PRESENT ILLNESS: This 56-year-old female is admitted to the hospital through the ER with abdominal pain. The patient complains of a fegjy-ku-bmnd day history of abdominal pain and obstipation. She describes the pain as being primarily in the right lower quadrant. The patient is seen in the emergency room. It was felt by the ER physician that emergent admission to the hospital was indicated. The patient has history of end-stage renal disease. She has a history of severe previous sigmoid diverticulitis requiring previous sigmoid colectomy with colostomy following an anastomotic leak. Her colostomy was recently reversed. The patient has a history of severe steroid-dependent arthritis, diabetes, hypertension, and obesity. On this admission again, the patient complains of right lower quadrant abdominal pain. She has had a low-grade fever. She states she was having diarrhea until 3 days ago and then has not had a bowel movement in 3 days. PAST MEDICAL HISTORY: 1. History of end-stage renal disease, dialysis dependent. 2. History of previous severe sigmoid diverticulitis, requiring previous sigmoid colectomy. The patient had a postoperative anastomotic leak, requiring reoperation with colostomy. The colostomy was reversed several weeks ago. 3. History of end-stage renal disease, dialysis dependent. 4. Hypertension. 5. Obesity. 6. Severe rheumatoid arthritis, steroid dependent. 7. History of hyperlipidemia. MEDICATIONS: 1. Zocor. 2. Carvedilol. 3. Zofran. 4. Prednisone. 5. Folic acid. 6. Carafate. 7. Zantac. 8. ProAir. 9. Insulin. 10.Hydralazine. 11.Cozaar. 12.Renvela. 13.Sensipar. History And Physical [address] [address] NAME: ANIBAL BA : 60 STATUS : DIS Jodie PAT#: [id number] AGE: 56 ADM/REG DATE : 10/07/16 MR#: [id number] REPORT SERV DATE: 10/08/16 DICTATED BY: ELIEL JOHNSTON III DATE: 10/08/16 REPORT STATUS : Draft TRANSCRIBED BY: MODVinita DATE: 10/08/16 SOCIAL HISTORY: The patient is . She lives locally. She is not employed. She has no history of tobacco or alcohol use. ALLERGIES: VANTIN AND LODINE. FAMILY HISTORY: Positive for multiple myeloma. PHYSICAL EXAMINATION: OBJECTIVE: GENERAL: This is an obese female, in no acute distress. She is alert and oriented x3. She states that she was not asleep during the night because of the bed which is uncomfortable. She seems anxious to go home. VITAL SIGNS: Blood pressure 180/97, temperature 98.7, and pulse 92. The patient has had no temperature elevation since admission. HEENT: Unremarkable. NEUROLOGIC: Cranial nerves 2 through 12 are normal. LUNGS: Clear. CARDIAC: Normal. ABDOMEN: Soft and completely nontender. She has a well-healed midline incision. There is no drainage or fluctuance noted. EXTREMITIES: Normal. LABORATORY DATA: White blood cell count is normal at 6.4. Hematocrit 33. Glucose on admission is 85. Creatinine is 6.47. CT scan of the abdomen and pelvis which I have reviewed shows evidence for possible cellulitis of the abdominal wall. There is no intraabdominal fluid collection or abscess noted. Her anastomosis appears to be intact with no evidence for leakage as far as I can determine. There is noted to be "possible cellulitis" in the subcutaneous fat. There is noted be some increased mesenteric stranding. This is probably related to the patient's recent colostomy closure. The radiologist stated that there was mesenteric stranding in the expected region of the catheter; however, this catheter has been removed for many weeks. ASSESSMENT: 1. A 56-year-old female with apparent cellulitis of the anterior abdominal wall seen radiographically, not clinically, with minimal symptoms at this time. 2. End-stage renal disease, dialysis dependent. 3. Diabetes mellitus. 4. Obesity. PLAN: The patient is extremely anxious to go home. She is scheduled for dialysis today. I believe that she can be discharged after dialysis if it is satisfactory with the Renal Service. She is extremely anxious to go home because she states that the hospital bed is uncomfortable. I have recommended stool softeners as needed for constipation. I have empirically given a prescription for Cipro 500 mg p.o. b.i.d. for one week. I have asked her to return in one week for followup. She was asked to call or return for any nausea, vomiting, fever, chills, wound drainage, or other problems prior to that time. All her questions were answered. She understands and agrees to this as planned. History And Physical [place] [id number] [facility] [place]. [place] [address]. [address] NAME: ANIBAL BA : 60 STATUS : DIS Jodie PAT#: [id number] AGE: 56 ADM/REG DATE : 10/07/16 MR#: [id number] REPORT SERV DATE: 10/08/16 DICTATED BY: ELIEL JOHNSTON III DATE: 10/08/16 REPORT STATUS : Draft TRANSCRIBED BY: COLUMBA DATE: 10/08/16 GENTRY/COLUMBA Eliel Johnston III, M.D. / [id number] CC: Wendie Marquez III, M.D.
[2016-10-07 13:15] LABS: BASOPHILS 0.8 %; BASOPHILS ABSOLUTE 0.06 10/3/uL (0.0-0.16); EOSINOPHILS 7.5 %; EOSINOPHILS ABSOLUTE 0.57 10/3/uL (0.0-0.53); ER CBC TAT 0 Hrs 07 Mins; HEMATOCRIT 32.5 % (36.0-48.0); HEMOGLOBIN 10.3 g/dL (12.0-16.0); IMMATURE GRANULOCYTES 0.3 %; IMMATURE GRANULOCYTES ABSOLUTE 0.02 10/3/uL (0.0-0.11); LYMPHOCYTES 13.6 %; LYMPHOCYTES ABSOLUTE 1.04 10/3/uL (0.67-4.30); MANUAL DIFF NO %; MEAN CORPUS HGB CONC 31.7 g/dL (32.0-36.0); MEAN CORPUSCULAR HEMOGLOB 26.4 pg (26.0-34.0); MEAN CORPUSCULAR VOLUME 83.3 fL (80-100); MEAN PLATELET VOLUME 8.8 fL (9.2-13.0); MONOCYTES 7.7 %; MONOCYTES ABSOLUTE 0.59 10/3/uL (0.21-1.20); NEUTROPHILS 70.1 %; NEUTROPHILS ABSOLUTE 5.37 10/3/uL (2.02-8.40); PLATELET COUNT 325 10/3/uL (150-400); RBC DISTRIBUTION WIDTH 17.3 % (12.0-16.0); WHITE BLOOD CELLS 7.7 10/3/uL (4.5-10.5)
[2016-10-07 13:32] LABS: A/G RATIO 0.6 (0.7-1.9); ALBUMIN 2.5 G/DL (3.5-5.0); CALCIUM, SERUM 9.8 MG/DL (8.5-10.4); CO2 (CARBON DIOXIDE) 25 MMOL/L (24-34); GFR AFRICAN AMERICAN 8 ML/MIN (>=60); GFR NON AFRICAN AMERICAN 7 ML/MIN (>=60); GLOBULIN 4.1 G/DL (2.5-4.1); SGPT(ALT) 10 U/L (5-65); TOTAL PROTEIN 6.6 G/DL (6.0-8.5)
[2016-10-07 13:36] LABS: ALKALINE PHOSPHATASE 114 U/L (45-117); BUN (BLOOD UREA NITROGEN) 37 MG/DL (6-23); GLUCOSE, SERUM 156 MG/DL (60-99)
[2016-10-07 13:54] LABS: CHLORIDE, SERUM 101 MMOL/L (96-112); POTASSIUM, SERUM 4.3 MMOL/L (3.5-5.3); SGOT(AST) 9 U/L (5-40); SODIUM, SERUM 135 MMOL/L (135-148); TOTAL BILIRUBIN 0.2 MG/DL (0-1.2)
[2016-10-07 13:56] LABS: DIRECT BILIRUBIN 0.1 MG/DL (0.0-0.4); INDIRECT BILIRUBIN(NOT ORDER) 0.1 MG/DL (0.1-0.9)
[2016-10-07 14:46] LABS: ASCORBIC ACID (UR NOT ORDER) NEG (NEG); BILIRUBIN, URINE NEGATIVE (NEG); ER URINALYSIS TAT 0 Hrs 12 Mins; KETONE, URINE NEGATIVE (NEG); NITRITE (URINE) NEG (NEG); WBC (NOT ORDERED) (RFLEX) 4 (0-5)
[2016-10-07 14:47] LABS: LEUKOCYTE ESTERASE(NOT OR TRACE (NEG)
[~2016-10-07 15:10] MED LIST changes: +PERCOCET 7.5/321 TAB PO
[2016-10-07] MEDS ORDERED: VANCOCIN HCL125 MG PO (16:03)
[2016-10-08 06:38] LABS: BASOPHILS 0.9 %; BASOPHILS ABSOLUTE 0.06 10/3/uL (0.0-0.16); EOSINOPHILS 9.4 %; HEMATOCRIT 33.5 % (36.0-48.0); HEMOGLOBIN 10.4 g/dL (12.0-16.0); IMMATURE GRANULOCYTES 0.3 %; IMMATURE GRANULOCYTES ABSOLUTE 0.02 10/3/uL (0.0-0.11); LYMPHOCYTES 20.3 %; MEAN CORPUSCULAR HEMOGLOB 26.4 pg (26.0-34.0); MEAN PLATELET VOLUME 8.4 fL (9.2-13.0); MONOCYTES 11.4 %; MONOCYTES ABSOLUTE 0.73 10/3/uL (0.21-1.20); NEUTROPHILS 57.7 %; PLATELET COUNT 354 10/3/uL (150-400); RBC DISTRIBUTION WIDTH 16.9 % (12.0-16.0); RED CELL COUNT 3.94 10/6/uL (4.0-5.6); WHITE BLOOD CELLS 6.4 10/3/uL (4.5-10.5)
[2016-10-08 06:41] LABS: MANUAL DIFF NO %
[2016-10-08 06:51] LABS: A/G RATIO 0.5 (0.7-1.9); ALBUMIN 2.4 G/DL (3.5-5.0); BUN (BLOOD UREA NITROGEN) 36 MG/DL (6-23); CALCIUM, SERUM 10.6 MG/DL (8.5-10.4); CHLORIDE, SERUM 104 MMOL/L (96-112); CO2 (CARBON DIOXIDE) 21 MMOL/L (24-34); CREATININE 6.47 MG/DL (0.55-1.02); GFR AFRICAN AMERICAN 8 ML/MIN (>=60); GFR NON AFRICAN AMERICAN 7 ML/MIN (>=60); GLOBULIN 4.7 G/DL (2.5-4.1); POTASSIUM, SERUM 4.6 MMOL/L (3.5-5.3); SGOT(AST) 8 U/L (5-40); SGPT(ALT) 6 U/L (5-65); SODIUM, SERUM 135 MMOL/L (135-148); TOTAL BILIRUBIN 0.3 MG/DL (0-1.2); TOTAL PROTEIN 7.1 G/DL (6.0-8.5)
[2016-10-08 06:53] LABS: ALKALINE PHOSPHATASE 100 U/L (45-117); GLUCOSE, SERUM 85 MG/DL (60-99)
[2016-10-08] MEDS ORDERED: CIP5 PO (11:48)
== END 2016-10-08 12:56 | disposition home or self-care (01) ==
LOC: ER 15:10 → 5SO 19:54
PROVIDERS: Emergency Medicine
DX: I12.0 Hypertensive chronic kidney disease with stage 5 chronic kidney disease or end stage renal disease (principal); N18.6 End stage renal disease; L03.311 Cellulitis of abdominal wall; E11.9 Type 2 diabetes mellitus without complications; E66.9 Obesity, unspecified; E78.5 Hyperlipidemia, unspecified; M06.9 Rheumatoid arthritis, unspecified; Z99.2 Dependence on renal dialysis; Z88.1 Allergy status to other antibiotic agents
CPT/HCPCS: 71010; 74176; 80053; 81001; 82248; 83690; 85025; 96374; 96375; 96376; 99285; A9270-GY; C9113; G0257; G0378; J1170; J2405

== ENCOUNTER 2016-10-14 19:42 | Inpatient (IN) | payer OTHER, MEDICARE ==
--- NOTE | ~2016-10-14 | DS ---
Discharge Summary [facility] [address] [facility] [place]. [address] NAME: ANIBAL BA : 60 STATUS : DIS IN PAT#: [id number] AGE: 56 ADM/REG DATE : 10/14/16 MR#: [id number] REPORT SERV DATE: 10/27/16 DICTATED BY: ELIEL JOHNSTON III DATE: 10/27/16 REPORT STATUS : Draft TRANSCRIBED BY: COLUMBA DATE: 10/27/16 Data Collection from hospitalization DISCHARGE DIAGNOSES: 1. Abdominal wall abscess status post CT-guided drainage. 2. End-stage renal disease. 3. History of diabetes mellitus. 4. Hypertension. 5. History of severe diverticular disease. 6. History of obstructive sleep apnea. 7. Morbid obesity. 8. Severe rheumatoid arthritis. 9. Hyperlipidemia. 10.History of peptic ulcer disease. 11.History of hiatal hernia. 12.History of cerebrovascular accident. CONSULTATIONS: None. PROCEDURES PERFORMED: 1. CT-guided biopsy/drainage of abdominal wall abscess, 10/15/2016. 2. Abscessogram, 10/17/2016. MEDICATIONS: ProAir two puffs via inhaler every four hours as needed; Cipro 500 mg as instructed; Lantus 20 units subcutaneously at bedtime; Arava 20 mg at bedtime; Toprol-XL 50 mg on Saturdays, Sundays, Tuesdays, and ; Zofran 4 mg twice a day as needed; Percocet 7.5/325 one tablet every six hours as needed; Deltasone 1 mg at bedtime; Zantac 150 mg at bedtime and 150 mg daily as needed; sodium bicarbonate 1300 mg every morning, vancomycin 125 mg twice a day as instructed. CONDITION AT DISCHARGE: Stable. DISPOSITION: The patient was discharged home on a renal diet with activities as instructed. She would call my office for a followup appointment. HOSPITAL COURSE: This is a 56-year-old female, who presented to the hospital with acute abdominal pain and possible abdominal wall abscess. She complained of a several day history of severe lower abdominal pain. She has had anorexia, but no vomiting. There had been no fevers or chills. She is status post colostomy closure, which had been performed in August 2016. Her postop recovery was uneventful. Approximately one week prior to this admission, the patient developed abdominal pain. She had been admitted to the hospital briefly. Her workup at that time showed some mesentry thickening near the anastomosis with no definite evidence for anastomotic leak. The patient insisted on going home at that time because of back pain related to the hospital bed. After discharge the week prior to this admission, she developed abdominal pain, which became progressively worse throughout the week. A CT scan of the abdomen and pelvis performed as an outpatient on the day prior to this admission showed possible anterior abdominal wall abscess. She was admitted to the hospital at this time for further evaluation and treatment. Discharge Summary [place] [address] [place]. [address] NAME: ANIBAL BA : 60 STATUS : DIS IN PAT#: [id number] AGE: 56 ADM/REG DATE : 10/14/16 MR#: [id number] REPORT SERV DATE: 10/27/16 DICTATED BY: ELIEL JOHNSTON III DATE: 10/27/16 REPORT STATUS : Draft TRANSCRIBED BY: COLUMBA DATE: 10/27/16 Upon admission, she was started on empiric antibiotics. It was felt that she would need to undergo CT-guided drainage of the fluid collection or phlegmon in the lower abdomen. Further treatment would depend on the result of this procedure. She agreed to proceed. On the , she underwent CT-guided biopsy and drainage of the abdominal wall abscess. A 13 mL of purulent material was removed. On the , she said she was feeling better, except that she was hungry. She was insisting on a regular diet. The patient said she had not been on a renal or diabetic diet for years. Her abdomen was less tender. Antibiotics were continued. Discharge planning was performed. On 10/17/2016, an abscessogram was performed. The patient was instructed on SHERLEY drain care. Discharge instructions were given. Due to her improved and stable condition, she was discharged home with the above-stated instructions. Information collected by: Padmini Cobb I submit the above information as my discharge summary. GABRIEL/COLUMBA Eliel Johnston III, M.D. / [id number] CC: Wendie Marquez III, M.D.
--- NOTE | ~2016-10-14 | HP ---
History And Physical [place] [address] [place]. [address] NAME: ANIBAL BA : 60 STATUS : ADM IN [facility]#: [id number] AGE: 56 ADM/REG DATE : 10/14/16 MR#: [id number] REPORT SERV DATE: 10/15/16 DICTATED BY: ELIEL JOHNSTON III DATE: 10/15/16 REPORT STATUS : Draft TRANSCRIBED BY: MODVinita DATE: 10/15/16 DATE OF ADMISSION: 10/14/2016 HISTORY OF PRESENT ILLNESS: This is a 56-year-old female who was admitted to hospital emergently with acute abdominal pain and possible abdominal wall abscess. The patient complains of several-day history of severe lower abdominal pain. She has had anorexia. She has had no vomiting. She has had no fever or chills. The patient is status post colostomy closure, which was performed on 09/23/2016. Her postop recovery was uneventful. Approximately one week ago, the patient developed abdominal pain. She was admitted to the hospital briefly. Her workup at that time showed some mesentery thickening near the anastomosis with no definite evidence for anastomotic leak. The patient insisted on going home at that time because of back pain related to the hospital bed. After discharge last week, she developed abdominal pain, which became progressively worse throughout the week. CT scan of the abdomen and pelvis was performed as an outpatient yesterday, which shows possible anterior abdominal wall abscess. It was felt that admission to the hospital is indicated. PAST MEDICAL HISTORY: 1. End-stage renal disease, dialysis dependent. 2. History of severe diverticular disease, the patient is status post sigmoid colectomy in May of this year. The patient had a postoperative microscopic anastomotic leak, requiring reoperation with colostomy. The patient is status post colostomy closure which was performed on 09/23/2016. 3. History of obstructive sleep apnea. 4. History of diabetes mellitus. 5. Hypertension. 6. Morbid obesity. 7. Severe rheumatoid arthritis, for which the patient is steroid dependent and also on other immunosuppressants. 8. Hyperlipidemia. 9. History of peptic ulcer disease. 10.History of hiatal hernia. 11.History of cerebrovascular accident in the past. MEDICATIONS AT HOME: Include the following medications: Zofran, Cipro, Percocet, Arava, Zantac, Vancocin, Deltasone, insulin, sodium bicarbonate, ProAir, Toprol. PAST SURGICAL HISTORY: Includes the above as well as cholecystectomy and appendectomy. REVIEW OF SYSTEMS: The patient again complains of lower abdominal pain with anorexia. She states she has not been able to eat well. The patient has a history of congestive heart failure and avascular necrosis. ALLERGIES: VANTIN, ASPIRIN, AND LODINE. History And Physical [address] [address] NAME: ANIBAL BA : 60 STATUS : ADM IN [facility]#: [id number] AGE: 56 ADM/REG DATE : 10/14/16 MR#: [id number] REPORT SERV DATE: 10/15/16 DICTATED BY: ELIEL JOHNSTON III DATE: 10/15/16 REPORT STATUS : Draft TRANSCRIBED BY: COLUMBA DATE: 10/15/16 PHYSICAL EXAMINATION: GENERAL: Obese female in no acute distress. She is alert and oriented x3. HEENT: Unremarkable. Cranial nerves 2 through 12 were normal. LUNGS: Clear. CARDIAC: Normal. ABDOMEN: Obese with a large panniculus, but soft. She has some tenderness at the inferior aspect of her previous midline incision. There is no overlying erythema. There is tenderness and fullness and firmness in the area, but no palpable fluctuance. The incision itself is well healed. EXTREMITIES: Normal. VITAL SIGNS: Blood pressure 137/67, temperature 99, pulse 81. LABORATORY DATA: CT scan of the abdomen and pelvis which I reviewed with Radiology shows lower anterior abdominal wall fluid collection or phlegmon. This is concerned for either seroma or possible developing abscess. White blood cell count 7.6, hematocrit 32. ASSESSMENT: 1. This 56-year-old female with lower anterior abdominal wall fluid collection, possible postop seroma versus abscess. 2. Status post recent colostomy closure. 3. End-stage renal disease, dialysis dependent. 4. Diabetes mellitus. 5. Obesity. 6. Obstructive sleep apnea. 7. Steroid-dependent rheumatoid arthritis for which the patient is on other immunosuppressants. 8. History of severe diverticulitis in the past. 9. Hypertension. 10.Hyperlipidemia. PLAN: The patient will be admitted, started empirically on antibiotics. I have requested CT directed drainage of the fluid collection or phlegmon in the lower abdomen. Further treatment will depend on the results of this procedure. The procedure risks, benefits, and alternatives have been discussed with the patient. Possible need for incision and drainage if the drainage procedure was not effective, it has been explained. The patient's questions have been answered. She clearly understands this and agrees to this plan. GENTRY/COLUMBA Eliel Johnston III, M.D. / [id number] CC: History And Physical [address] [address] NAME: ANIBAL BA : 60 STATUS : ADM IN [facility]#: [id number] AGE: 56 ADM/REG DATE : 10/14/16 MR#: [id number] REPORT SERV DATE: 10/15/16 DICTATED BY: ELIEL JOHNSTON III DATE: 10/15/16 REPORT STATUS : Draft TRANSCRIBED BY: COLUMBA DATE: 10/15/16 Wendie Marquez III, M.D.
[~2016-10-14 19:42] MED LIST changes: +VANCOCIN HCL125 MG PO
[2016-10-14] MEDS ORDERED: ZOFRAN4 PO (23:57)
[2016-10-14] MEDS ORDERED: ARAVA20 PO (23:58)
[2016-10-14] MEDS ORDERED: CIP5 PO (23:58)
[2016-10-14] MEDS ORDERED: PERCOCET 7.5/321 TAB PO (23:58)
[2016-10-14] MEDS ORDERED: VANCOCIN HCL125 MG PO (23:59)
[2016-10-14] MEDS ORDERED: ZANTAC 150 PO ×2 (23:59)
[2016-10-15] MEDS ORDERED: LANTUSCART SC
[2016-10-15] MEDS ORDERED: SODBICAR10 PO
[2016-10-15] MEDS ORDERED: P1 PO
[2016-10-15] MEDS ORDERED: PROAIRRESP INH (00:01)
[2016-10-15] MEDS ORDERED: TOPXL50 PO (00:05)
[2016-10-15 06:02] LABS: BASOPHILS 0.4 %; BASOPHILS ABSOLUTE 0.03 10/3/uL (0.0-0.16); EOSINOPHILS 10.4 %; EOSINOPHILS ABSOLUTE 0.79 10/3/uL (0.0-0.53); HEMATOCRIT 32.7 % (36.0-48.0); HEMOGLOBIN 10.3 g/dL (12.0-16.0); IMMATURE GRANULOCYTES 0.5 %; IMMATURE GRANULOCYTES ABSOLUTE 0.04 10/3/uL (0.0-0.11); LYMPHOCYTES 25.6 %; LYMPHOCYTES ABSOLUTE 1.94 10/3/uL (0.67-4.30); MEAN CORPUS HGB CONC 31.5 g/dL (32.0-36.0); MEAN CORPUSCULAR HEMOGLOB 26.1 pg (26.0-34.0); MEAN PLATELET VOLUME 8.6 fL (9.2-13.0); MONOCYTES ABSOLUTE 0.68 10/3/uL (0.21-1.20); NEUTROPHILS 54.1 %; PLATELET COUNT 318 10/3/uL (150-400); RBC DISTRIBUTION WIDTH 16.8 % (12.0-16.0); RED CELL COUNT 3.94 10/6/uL (4.0-5.6); WHITE BLOOD CELLS 7.6 10/3/uL (4.5-10.5)
[2016-10-15 06:04] LABS: MANUAL DIFF NO %
[2016-10-15 06:16] LABS: A/G RATIO 0.6 (0.7-1.9); ALBUMIN 2.6 G/DL (3.5-5.0); CALCIUM, SERUM 9.9 MG/DL (8.5-10.4); CHLORIDE, SERUM 103 MMOL/L (96-112); GLOBULIN 4.3 G/DL (2.5-4.1); POTASSIUM, SERUM 4.1 MMOL/L (3.5-5.3); SGOT(AST) 8 U/L (5-40); SGPT(ALT) 9 U/L (5-65); SODIUM, SERUM 138 MMOL/L (135-148); TOTAL BILIRUBIN 0.5 MG/DL (0-1.2); TOTAL PROTEIN 6.9 G/DL (6.0-8.5)
[2016-10-15 06:18] LABS: ALKALINE PHOSPHATASE 84 U/L (45-117); BUN (BLOOD UREA NITROGEN) 28 MG/DL (6-23); CO2 (CARBON DIOXIDE) 28 MMOL/L (24-34); CREATININE 5.23 MG/DL (0.55-1.02); GFR AFRICAN AMERICAN 10 ML/MIN (>=60); GFR NON AFRICAN AMERICAN 9 ML/MIN (>=60); GLUCOSE, SERUM 140 MG/DL (60-99)
[2016-10-15 10:24] LABS: INTERNATIONAL NORMAL RATI 1.2 UNITS (-); PARTIAL THROMBO TIME 29.8 SEC (22.5-37.2); PROTIME (NOT ORD) 15.3 SEC (12.0-14.5)
[2016-10-16 06:22] LABS: BASOPHILS 0.8 %; BASOPHILS ABSOLUTE 0.07 10/3/uL (0.0-0.16); EOSINOPHILS 12.7 %; EOSINOPHILS ABSOLUTE 1.05 10/3/uL (0.0-0.53); HEMATOCRIT 31.8 % (36.0-48.0); IMMATURE GRANULOCYTES 0.1 %; IMMATURE GRANULOCYTES ABSOLUTE 0.01 10/3/uL (0.0-0.11); LYMPHOCYTES 20.5 %; LYMPHOCYTES ABSOLUTE 1.69 10/3/uL (0.67-4.30); MEAN CORPUS HGB CONC 31.4 g/dL (32.0-36.0); MEAN CORPUSCULAR VOLUME 82.8 fL (80-100); MEAN PLATELET VOLUME 8.5 fL (9.2-13.0); MONOCYTES 12.4 %; MONOCYTES ABSOLUTE 1.02 10/3/uL (0.21-1.20); NEUTROPHILS 53.5 %; NEUTROPHILS ABSOLUTE 4.41 10/3/uL (2.02-8.40); PLATELET COUNT 331 10/3/uL (150-400); RBC DISTRIBUTION WIDTH 16.7 % (12.0-16.0); RED CELL COUNT 3.84 10/6/uL (4.0-5.6); WHITE BLOOD CELLS 8.3 10/3/uL (4.5-10.5)
[2016-10-16 06:24] LABS: MANUAL DIFF NO %
[2016-10-16 06:31] LABS: BUN (BLOOD UREA NITROGEN) 35 MG/DL (6-23); CHLORIDE, SERUM 107 MMOL/L (96-112); CO2 (CARBON DIOXIDE) 26 MMOL/L (24-34); CREATININE 6.24 MG/DL (0.55-1.02); GFR AFRICAN AMERICAN 8 ML/MIN (>=60); GFR NON AFRICAN AMERICAN 7 ML/MIN (>=60); GLUCOSE, SERUM 111 MG/DL (60-99); POTASSIUM, SERUM 4.8 MMOL/L (3.5-5.3); SODIUM, SERUM 140 MMOL/L (135-148)
[2016-10-17 09:19] LABS: BASOPHILS 0.6 %; BASOPHILS ABSOLUTE 0.04 10/3/uL (0.0-0.16); EOSINOPHILS 15.8 %; EOSINOPHILS ABSOLUTE 1.01 10/3/uL (0.0-0.53); HEMATOCRIT 32.2 % (36.0-48.0); HEMOGLOBIN 10.1 g/dL (12.0-16.0); IMMATURE GRANULOCYTES 0.2 %; IMMATURE GRANULOCYTES ABSOLUTE 0.01 10/3/uL (0.0-0.11); LYMPHOCYTES 28.2 %; MANUAL DIFF NO %; MEAN CORPUS HGB CONC 31.4 g/dL (32.0-36.0); MEAN CORPUSCULAR HEMOGLOB 25.8 pg (26.0-34.0); MEAN CORPUSCULAR VOLUME 82.4 fL (80-100); MEAN PLATELET VOLUME 8.7 fL (9.2-13.0); MONOCYTES 12.8 %; MONOCYTES ABSOLUTE 0.82 10/3/uL (0.21-1.20); NEUTROPHILS 42.4 %; NEUTROPHILS ABSOLUTE 2.71 10/3/uL (2.02-8.40); PLATELET COUNT 363 10/3/uL (150-400); RBC DISTRIBUTION WIDTH 16.7 % (12.0-16.0); RED CELL COUNT 3.91 10/6/uL (4.0-5.6); WHITE BLOOD CELLS 6.4 10/3/uL (4.5-10.5)
[2016-10-17 09:28] LABS: ALBUMIN 2.4 G/DL (3.5-5.0); BUN (BLOOD UREA NITROGEN) 38 MG/DL (6-23); CALCIUM, SERUM 9.7 MG/DL (8.5-10.4); CHLORIDE, SERUM 110 MMOL/L (96-112); CO2 (CARBON DIOXIDE) 21 MMOL/L (24-34); CREATININE 6.49 MG/DL (0.55-1.02); GFR AFRICAN AMERICAN 8 ML/MIN (>=60); GFR NON AFRICAN AMERICAN 7 ML/MIN (>=60); GLUCOSE, SERUM 107 MG/DL (60-99); PHOSPHORUS, SERUM 5.6 MG/DL (2.5-4.5); POTASSIUM, SERUM 4.2 MMOL/L (3.5-5.3); SODIUM, SERUM 138 MMOL/L (135-148)
== END 2016-10-18 08:33 | disposition hospice, home (50) | DRG 602 ==
LOC: 4EA 19:42
PROVIDERS: Nurse Practitioner; Surgery
PROC: 0W9F30Z Drainage of Abdominal Wall with Drainage Device, Percutaneous Approach (ICD-10-PCS; principal; 2016-10-15)
PROC: BW201ZZ Computerized Tomography (CT Scan) of Abdomen using Low Osmolar Contrast (ICD-10-PCS; 2016-10-17)
PROC: 5A1D00Z (ICD-10-PCS; 2016-10-17)
DX: L02.211 Cutaneous abscess of abdominal wall (principal); N18.6 End stage renal disease; E11.22 Type 2 diabetes mellitus with diabetic chronic kidney disease; N18.4 Chronic kidney disease, stage 4 (severe); Q42.8 Congenital absence, atresia and stenosis of other parts of large intestine; N28.1 Cyst of kidney, acquired; Z99.2 Dependence on renal dialysis; M06.9 Rheumatoid arthritis, unspecified; G47.33 Obstructive sleep apnea (adult) (pediatric); Z90.710 Acquired absence of both cervix and uterus; Z90.49 Acquired absence of other specified parts of digestive tract; M16.0 Bilateral primary osteoarthritis of hip; Z93.3 Colostomy status
CPT/HCPCS: 10030; 49418; 49424; 74176; 76080; 77012; 80048; 80053; 80069; 82962; 83735; 85025; 85049; 85610; 85730; 87070; 87077; 87186; 87205; A9270-GY; C1729; G0257; J1170; J2250; J2405; J2543; J2997; J3010; Q9967